=== PATIENT | female | born 1990 | race Caucasian/White ===

== ENCOUNTER 2017-08-29 10:47 | Emergency (ER) | payer OTHER ==
[~2017-08-29] VITALS: Ht 165.1 cm; Wt 72.7 kg
[2017-08-29] MEDS ORDERED: BACITRACIN28.4 GM TP (13:11)
[2017-08-29 15:11] VITALS: BP 106/74
== END 2017-08-29 15:39 | disposition home or self-care (01) ==
LOC: EME 10:47
PROC: 3E0234Z Introduction of Serum, Toxoid and Vaccine into Muscle, Percutaneous Approach (ICD-10-PCS; principal; 2017-08-29)
DX: T22.252A Burn of second degree of left shoulder, initial encounter (principal); T31.0 Burns involving less than 10% of body surface; X98.1XXA Assault by hot tap water, initial encounter; Y07.03 Male partner, perpetrator of maltreatment and neglect; Z23 Encounter for immunization; Z87.891 Personal history of nicotine dependence
CPT/HCPCS: 99281; 99283